=== PATIENT | male | born 1980 | race African-American/Black ===

== ENCOUNTER 2021-11-10 14:42 | Outpatient (CLI) | payer OTHER ==
[2021-11-10 15:49] VITALS: BP 120/79
--- NOTE | 2021-11-10 15:49 | SLEEP CARE CONSULTATION ---
Information from patient questionnaire entered by Neelam Francisco MA. I have reviewed and concur with the information entered by Neelam Francisco MA. This document represents the service I personally performed and the decisions made by me, Magdalena Nuñez ARNP. 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 His current complaints are snoring and observed pauses in breathing. He states his is complaining of his loud snoring and having pauses in breathing at night. She has told him he will stop breathing and then gasp for air. She has recorded this on her phone and sent it to him. 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 He states that his has told him he will wake up after the pause in breathing/snoring and then go back to sleep fairly often at night but he does not remember waking up. He does not wake up feeling rested and does experience headaches 1-2 times a week. He has had william es with long drives where he got very sleepy/drowsy, but sometimes he will have similar issues in just normal day to day traffic. 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 He is working on retiring from the [employer] and trying to get his medical stuff in order. 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 Patient is and lives in [place]. Have you smoked in the past 12 months: Yes Cigarettes per day (20/pack): 20 Years of smokin Quit date: May 2021 Smoking Pack Years: 25.0 Alcohol use: Yes Alcohol amount and frequency: 3- 4 X WEEKLY Caffeine use: Yes Caffeine amount and frequency: 1 X DAILY Family History Family history of sleep disordered breathing: No Allergies and Home Medications Known drug allergies: No (NKA) Drug allergies reviewed: Yes (NKDA) Home medication list reviewed: Yes (not currently taking any daily medications) Review of Systems Cardiovascular: reports: high blood pressure (in 2016 in [place]) Gastrointestinal: reports: heartburn Urinary: reports: frequency Neurological: reports: headaches. denies: head trauma Psychiatric: reports: anxiety Ear/Nose/Throat: reports: wisdom teeth removed. denies: dry mouth/throat, tonsillectomy Endocrine: reports: increased urination. denies: thyroid disease Musculoskeletal: reports: back pain Immunologic: reports: sneezing Physical Exam Vital signs obtained and entered by: STIVEN HALE Blood Pressure: 120/79 (RESP 18, PULSE 80, RIGHT) Cuff size: wrist Heart Rate: 79 O2 Saturation: 98 (CLOTH MASK) Height: 5 ft 9 in Weight: 210 lb (CLOTHES) Body Mass Index: 31.0 BMI Classification: Obese Neck circumference: 15 (INCHES) Mouth and throat: narrow oropharynx Soft palate: normal Hard palate: normal Uvula: long Uvula visualization: 50% Mallampati Class II Tongue: enlarged in size with teeth cyr on lateral edges Tonsils: 1+ Neck: normal w/o lymphadenopathy or thyromegaly Heart: regular rate and rhythm Lungs: clear bilaterally Impression and Plan 1. Suspected Obstructive Sleep Apnea-Hypopnea Syndrome, as suggested by a history of loud and irregular snoring, observed cessation of breath while asleep, gasping or choking in sleep, morning headache, frequent awakening during the night, unrefreshed sleep, cognitive impairment, and excessive daytime sleepiness. Narrow oropharynx and obesity are common predisposing factors for obstructive sleep apnea-hypopnea syndrome. I recommend proceeding to polysomnography to confirm the diagnosis and to assess severity. If the patient has significant sleep disordered breathing, a manual CPAP titration study will also be performed to find the optimal treatment pressure. I informed the patient of what the sleep studies involve and after some discussion, obtained agreement to proceed. The pathophysiology of obstructive sleep apnea-hypopnea syndrome was discussed with the patient and health risks of cardiovascular and cereb rovascular disease if not treated. Risks of drowsy driving discussed in detail and patient advised to avoid long distance driving and to well puller head at the first sign of drowsiness. Patient agreed to plan. * Schedule polysomnography * Avoid long distance driving or driving when feeling sleepy. * Avoid alcohol, sedative and muscle relaxant around bedtime. * Attempt to lose weight. * Review instructions provided by trained office staff on how to prepare for the sleep study. * Return for follow-up after sleep study completed. Counseling Topics: Weight loss health impact Visit Type: In Office Time Spent with Patient (minutes): 30 Provider Statement: I spent 100% of the Face to Face Visit with the patient with greater than 50% spent counseling the patient and coordination of care.
== END 2021-11-10 14:43 | disposition home or self-care (01) ==
LOC: EDBD → SC 14:42
PROVIDERS: ATTEND Nurse Practitioner Family
DX: R06.83 Snoring (principal); R06.81 Apnea, not elsewhere classified; R51.9 Headache, unspecified; G47.10 Hypersomnia, unspecified; G47.8 Other sleep disorders
CPT/HCPCS: 99203; 99212